=== PATIENT | female | born 1930 | race Caucasian/White ===

== ENCOUNTER 2018-10-17 13:44 | Observation (INO) ==
[2018-10-17] MEDS ORDERED: SODIUM CHLORIDE 0.9% 500 ML IV STA (14:36)
[2018-10-17] MEDS ORDERED: ONDANSETRON 4 MG/2 ML VIAL IV STA (14:36)
[2018-10-17 14:43] LABS: Basophils % 0.6 % (0.0-0.8); Eosinophils # 0.1 10*3/uL (0.0-0.87); Eosinophils % 2.6 % (0.00-10.9); Hematocrit 37.7 VOL% (35.7-47.0); Hemoglobin 12.1 GM/DL (12.0-16.0); Immature Granulocytes % 0.4 %; Immature Granulocytes Absolute 0.02 #; Lymphocytes # 1.2 10*3/uL (1.4-4.0); Lymphocytes % 25.8 % (21.3-54.2); Mean Corpuscular HGB Conc 32.1 GM/DL (32-36); Mean Corpuscular Hemoglobin 28 PG (27-34); Mean Corpuscular Volume 87.7 FL (87-102); Mean Platelet Volume 10.6 FL (9.6-12.0); Monocytes # 0.4 10*3/uL (0.11-0.8); Monocytes % 9.4 % (1.7-12.7); Neutrophils # 2.9 10*3/uL (1.4-7.4); Neutrophils % 61.2 % (38.7-73.9); Platelet Count 186 T/CUMM (130-400); Red Cell Distribution Width 14.2 % (9.3-17.3); White Blood Count 4.7 T/CUMM (4-12)
[2018-10-17 14:51] LABS: PT Patient Result 10.5 SECS
[2018-10-17 15:08] LABS: Albumin 3.6 G/DL (3.4-5.0); Bilirubin,Total 0.4 MG/DL (0.2-1.0); Calcium 9.1 MG/DL (8.5-10.1); Osmolality,Calculated 279.4 MOS/KG (273-304); Potassium 3.8 MMOL/L (3.5-5.1); Total Protein 7.9 G/DL (6.4-8.3)
[2018-10-17] MEDS ORDERED: ACETAMINOPHEN 325 MG TABLET PO PRN (16:25)
[2018-10-17] MEDS ORDERED: ONDANSETRON 4 MG/2 ML VIAL IV PRN (16:25)
[2018-10-17 17:06] LABS: Apearance,Urine CLEAR (Clear); Bilirubin,Urine Negative (Negative); Blood, Urine Negative (Negative); Glucose,Urine (UA) Negative (Negative); Ketones,Urine Negative (Negative); Mucus,Urine Occasional /LPF (Occasional); Nitrite,Urine Negative (Negative); Protein,Urine Negative; RBC,Urine 1 /HPF (0-4); Squamous Epithelial Cell,Urine Occasional /HPF (0-10); Urine Color Straw (Yellow); Urine Specific Gravity 1.006 (1.001-1.035); Urine Urobilinogen < 2.0 EU/DL (0.2-1.0); WBC,Urine 1 /HPF (0-6)
[2018-10-17] MEDS ORDERED: INFLUENZA VIRUS VACCINE 0.5 ML SYRINGE IM ONE (18:24)
[2018-10-17] MEDS: DEXTROSE 5% NACL 0.9% 1,000 ML IV SCH (18:26)
[2018-10-17] MEDS: DOCUSATE SODIUM 100 MG CAPSULE PO SCH (20:11)
[2018-10-17] MEDS ORDERED: ENOXAPARIN 30 MG/0.3 ML SYRINGE SUBCUT SCH (21:00)
[2018-10-18] MEDS: DEXTROSE 5% NACL 0.9% 1,000 ML IV SCH ×2 (04:26→15:19)
[2018-10-18] MEDS ORDERED: LEVOTHYROXINE 50 MCG TABLET PO SCH (07:00)
[2018-10-18] MEDS: DOCUSATE SODIUM 100 MG CAPSULE PO SCH (08:51)
[2018-10-18] MEDS ORDERED: PANTOPRAZOLE 40 MG TABLET PO SCH (09:00)
[2018-10-18 15:51] LABS: Basophils % 0.8 % (0.0-0.8); Eosinophils # 0.1 10*3/uL (0.0-0.87); Eosinophils % 2.8 % (0.00-10.9); Hematocrit 33.6 VOL% (35.7-47.0); Hemoglobin 10.8 GM/DL (12.0-16.0); Immature Granulocytes % 0.3 %; Immature Granulocytes Absolute 0.01 #; Lymphocytes # 1.2 10*3/uL (1.4-4.0); Lymphocytes % 31.4 % (21.3-54.2); Mean Corpuscular HGB Conc 32.1 GM/DL (32-36); Mean Corpuscular Hemoglobin 28 PG (27-34); Mean Corpuscular Volume 88.4 FL (87-102); Mean Platelet Volume 10.6 FL (9.6-12.0); Monocytes # 0.4 10*3/uL (0.11-0.8); Neutrophils # 2.2 10*3/uL (1.4-7.4); Neutrophils % 55.7 % (38.7-73.9); Platelet Count 177 T/CUMM (130-400); Red Cell Distribution Width 14.4 % (9.3-17.3); White Blood Count 3.9 T/CUMM (4-12)
[2018-10-18 16:08] LABS: Bilirubin,Total 0.4 MG/DL (0.2-1.0); Calcium 8.1 MG/DL (8.5-10.1); Potassium 3.7 MMOL/L (3.5-5.1); Total Protein 6.6 G/DL (6.4-8.3)
[2018-10-18] MEDS ORDERED: ASPIRIN EC 81 MG TABLET PO SCH (16:30)
[2018-10-18 16:37] VITALS: BP 171/74
[2018-10-19] MEDS ORDERED: LEVOTHYROXINE 75 MCG TABLET PO SCH (06:30)
== END 2018-10-18 16:43 | disposition home or self-care (01) ==
LOC: N.ED 13:44 → N.EDINP 13:44 → N.4E 17:26
PROVIDERS: ADMIT Family Medicine; ATTEND Family Medicine

== ENCOUNTER 2018-11-12 11:12 | Inpatient (IN) ==
[2018-11-12] MEDS ORDERED: SODIUM CHLORIDE 0.9% 1,000 ML IV STA ×2 (11:43→11:53)
[2018-11-12] MEDS ORDERED: ONDANSETRON 4 MG/2 ML VIAL IV STA (11:43)
[2018-11-12] MEDS ORDERED: cefTRIAXone 1,000 MG in SODIUM CHLORIDE 0.9% 100 ML IV STA (11:56)
[2018-11-12 12:28] LABS: Basophils % 0.1 % (0.0-0.8); Eosinophils % 0.2 % (0.00-10.9); Hematocrit 41.4 VOL% (35.7-47.0); Hemoglobin 13.3 GM/DL (12.0-16.0); Immature Granulocytes % 0.2 %; Immature Granulocytes Absolute 0.02 #; Lymphocytes # 0.2 10*3/uL (1.4-4.0); Lymphocytes % 1.8 % (21.3-54.2); Mean Corpuscular HGB Conc 32.1 GM/DL (32-36); Mean Corpuscular Hemoglobin 28 PG (27-34); Mean Corpuscular Volume 87.3 FL (87-102); Mean Platelet Volume 10.7 FL (9.6-12.0); Monocytes # 0.3 10*3/uL (0.11-0.8); Monocytes % 3.1 % (1.7-12.7); Neutrophils # 7.9 10*3/uL (1.4-7.4); Neutrophils % 94.6 % (38.7-73.9); Platelet Count 184 T/CUMM (130-400); Red Blood Count 4.74 MC/CUMM (3.8-5.5); Red Cell Distribution Width 14.6 % (9.3-17.3); White Blood Count 8.4 T/CUMM (4-12)
[2018-11-12 12:52] LABS: Albumin 3.9 G/DL (3.4-5.0); Bilirubin,Total 1.1 MG/DL (0.2-1.0); Calcium 9.2 MG/DL (8.5-10.1); Osmolality,Calculated 277.7 MOS/KG (273-304); Potassium 3.6 MMOL/L (3.5-5.1); Total Protein 7.7 G/DL (6.4-8.3)
[2018-11-12 13:21] LABS: Band Neutrophils 10 % (0-10); Lymphocytes 2 % (20-55); Platelet Estimate Normal; Segmented Neutrophils 84 % (50-85); Total Cells Counted 100
[2018-11-12 13:28] LABS: Apearance,Urine CLOUDY (Clear); Bilirubin,Urine Negative (Negative); Blood, Urine Small mg/dL (Negative); Glucose,Urine (UA) Negative (Negative); Ketones,Urine 5 mg/dL (Negative); Mucus,Urine Many /LPF (Occasional); Nitrite,Urine Negative (Negative); Protein,Urine 100 MG/DL; RBC,Urine 25 /HPF (0-4); Urine Color Amber (Yellow); Urine Specific Gravity 1.015 (1.001-1.035); WBC,Urine 940 /HPF (0-6)
[2018-11-12] MEDS ORDERED: ACETAMINOPHEN 325 MG TABLET PO PRN (15:30)
[2018-11-12] MEDS ORDERED: INFLUENZA VIRUS VACCINE 0.5 ML SYRINGE IM ONE (15:34)
[2018-11-12] MEDS: SODIUM CHLORIDE 0.9% 1,000 ML IV SCH (17:04)
[2018-11-12] MEDS: DOCUSATE SODIUM 100 MG CAPSULE PO SCH (20:31)
[2018-11-13] MEDS: SODIUM CHLORIDE 0.9% 1,000 ML IV SCH ×3 (00:37→20:45)
[2018-11-13] MEDS: LEVOTHYROXINE 75 MCG TABLET PO SCH (05:47)
[2018-11-13] MEDS: DOCUSATE SODIUM 100 MG CAPSULE PO SCH ×2 (08:52→20:14)
[2018-11-13] MEDS: PANTOPRAZOLE 40 MG TABLET PO SCH (08:52)
[2018-11-13] MEDS: DONEPEZIL 10 MG TABLET PO SCH (08:52)
[2018-11-13] MEDS: ASPIRIN EC 81 MG TABLET PO SCH (08:52)
[2018-11-13] MEDS: cefTRIAXone 1,000 MG in SYRINGE 1 EACH IV SCH (08:53)
[2018-11-13] MEDS: AZITHROMYCIN INJ 250 MG in SODIUM CHLORIDE 0.9% 250 ML IV SCH (08:54)
[2018-11-13] MEDS: ONDANSETRON 4 MG/2 ML VIAL IV PRN ×2 (12:20→20:14)
[2018-11-14] MEDS: SODIUM CHLORIDE 0.9% 1,000 ML IV SCH ×2 (04:29→21:19)
[2018-11-14 04:46] LABS: Basophils % 0.3 % (0.0-0.8); Eosinophils # 0.3 10*3/uL (0.0-0.87); Eosinophils % 4.5 % (0.00-10.9); Hematocrit 30.3 VOL% (35.7-47.0); Hemoglobin 9.6 GM/DL (12.0-16.0); Immature Granulocytes % 0.1 %; Immature Granulocytes Absolute 0.01 #; Lymphocytes # 0.7 10*3/uL (1.4-4.0); Lymphocytes % 9.2 % (21.3-54.2); Mean Corpuscular HGB Conc 31.7 GM/DL (32-36); Mean Corpuscular Hemoglobin 28 PG (27-34); Mean Corpuscular Volume 88.1 FL (87-102); Mean Platelet Volume 11.1 FL (9.6-12.0); Monocytes # 0.3 10*3/uL (0.11-0.8); Monocytes % 4.2 % (1.7-12.7); Neutrophils # 5.9 10*3/uL (1.4-7.4); Neutrophils % 81.7 % (38.7-73.9); Platelet Count 125 T/CUMM (130-400); Red Blood Count 3.44 MC/CUMM (3.8-5.5); Red Cell Distribution Width 15.1 % (9.3-17.3); White Blood Count 7.2 T/CUMM (4-12)
[2018-11-14 05:14] LABS: Calcium 7.5 MG/DL (8.5-10.1); Osmolality,Calculated 278.4 MOS/KG (273-304); Potassium 3.3 MMOL/L (3.5-5.1)
[2018-11-14] MEDS: LEVOTHYROXINE 75 MCG TABLET PO SCH (07:47)
[2018-11-14] MEDS: DONEPEZIL 10 MG TABLET PO SCH (08:45)
[2018-11-14] MEDS: ASPIRIN EC 81 MG TABLET PO SCH (08:46)
[2018-11-14] MEDS: PANTOPRAZOLE 40 MG TABLET PO SCH (08:46)
[2018-11-14] MEDS: cefTRIAXone 1,000 MG in SYRINGE 1 EACH IV SCH (08:46)
[2018-11-14] MEDS: DOCUSATE SODIUM 100 MG CAPSULE PO SCH ×2 (08:46→21:21)
[2018-11-14] MEDS: ONDANSETRON 4 MG/2 ML VIAL IV PRN (08:47)
[2018-11-14] MEDS: AZITHROMYCIN INJ 250 MG in SODIUM CHLORIDE 0.9% 250 ML IV SCH (08:47)
[2018-11-14] MEDS ORDERED: POTASSIUM CHLORIDE 20 MEQ TABLET PO ONE (09:30)
[2018-11-14] MEDS ORDERED: LACTULOSE 20 GM/30 ML UDCUP PO ONE ×2 (10:00→14:53)
[2018-11-14] MEDS ORDERED: POTASSIUM CHLORIDE RIDER 10 MEQ in PREMIX 1 EACH IV ONE (10:00)
[2018-11-14] MEDS ORDERED: METOCLOPRAMIDE 10 MG/2 ML VIAL IV ONE (10:00)
[2018-11-14] MEDS: LOSARTAN 50 MG TABLET PO SCH (16:41)
[2018-11-15] MEDS: LEVOTHYROXINE 75 MCG TABLET PO SCH (06:19)
[2018-11-15] MEDS: SODIUM CHLORIDE 0.9% 1,000 ML IV SCH ×3 (06:56→20:39)
[2018-11-15] MEDS: cefTRIAXone 1,000 MG in SYRINGE 1 EACH IV SCH (10:07)
[2018-11-15] MEDS: DONEPEZIL 10 MG TABLET PO SCH (10:08)
[2018-11-15] MEDS: PANTOPRAZOLE 40 MG TABLET PO SCH (10:08)
[2018-11-15] MEDS: ASPIRIN EC 81 MG TABLET PO SCH (10:08)
[2018-11-15] MEDS: AZITHROMYCIN 250 MG TABLET PO SCH (10:08)
[2018-11-15] MEDS: DOCUSATE SODIUM 100 MG CAPSULE PO SCH ×2 (10:08→21:35)
[2018-11-15] MEDS: LOSARTAN 50 MG TABLET PO SCH ×2 (10:08→22:35)
[2018-11-15] MEDS: ONDANSETRON 4 MG/2 ML VIAL IV PRN ×2 (14:58→21:34)
[2018-11-15] MEDS ORDERED: cloNIDine 0.1 MG TABLET PO ONE (22:30)
[2018-11-16 05:12] LABS: Basophils % 0.5 % (0.0-0.8); Eosinophils # 0.2 10*3/uL (0.0-0.87); Eosinophils % 4.7 % (0.00-10.9); Hemoglobin 11.4 GM/DL (12.0-16.0); Immature Granulocytes % 0.2 %; Immature Granulocytes Absolute 0.01 #; Lymphocytes # 1.2 10*3/uL (1.4-4.0); Lymphocytes % 29.1 % (21.3-54.2); Mean Corpuscular HGB Conc 32.6 GM/DL (32-36); Mean Corpuscular Hemoglobin 28 PG (27-34); Mean Corpuscular Volume 84.7 FL (87-102); Mean Platelet Volume 11.2 FL (9.6-12.0); Monocytes # 0.3 10*3/uL (0.11-0.8); Monocytes % 6.4 % (1.7-12.7); Neutrophils # 2.4 10*3/uL (1.4-7.4); Neutrophils % 59.1 % (38.7-73.9); Platelet Count 175 T/CUMM (130-400); Red Blood Count 4.13 MC/CUMM (3.8-5.5); Red Cell Distribution Width 14.6 % (9.3-17.3); White Blood Count 4.1 T/CUMM (4-12)
[2018-11-16 05:45] LABS: Osmolality,Calculated 273.5 MOS/KG (273-304)
[2018-11-16] MEDS: LEVOTHYROXINE 75 MCG TABLET PO SCH (05:54)
[2018-11-16] MEDS: cefTRIAXone 1,000 MG in SYRINGE 1 EACH IV SCH (10:03)
[2018-11-16] MEDS: ASPIRIN EC 81 MG TABLET PO SCH (10:04)
[2018-11-16] MEDS: LOSARTAN 50 MG TABLET PO SCH ×2 (10:04→22:36)
[2018-11-16] MEDS: AZITHROMYCIN 250 MG TABLET PO SCH (10:05)
[2018-11-16] MEDS: DONEPEZIL 10 MG TABLET PO SCH ×2 (10:05→10:07)
[2018-11-16] MEDS: PANTOPRAZOLE 40 MG TABLET PO SCH (10:05)
[2018-11-16] MEDS: DOCUSATE SODIUM 100 MG CAPSULE PO SCH ×2 (10:05→22:36)
[2018-11-16] MEDS: MECLIZINE 25 MG TABLET PO SCH ×2 (10:05→22:36)
[2018-11-16] MEDS: hydrOXYzine HCL 25 MG TABLET PO SCH ×2 (11:33→22:36)
[2018-11-16] MEDS: SERTRALINE 50 MG TABLET PO SCH (11:34)
[2018-11-16] MEDS: SODIUM CHLOR 0.9% KCL 20 MEQ 20 MEQ/1,000 ML BAG IV SCH ×2 (11:34→23:41)
[2018-11-16] MEDS: SODIUM CHLORIDE 0.9% 1,000 ML IV SCH (23:13)
[2018-11-17] MEDS: LEVOTHYROXINE 75 MCG TABLET PO SCH (06:05)
[2018-11-17] MEDS ORDERED: POTASSIUM CHLORIDE 20 MEQ/15 ML UDCUP PO SCH (07:30)
[2018-11-17] MEDS ORDERED: POTASSIUM CHLORIDE 20 MEQ/15 ML UDCUP PO ONE (08:07)
[2018-11-17] MEDS: MECLIZINE 25 MG TABLET PO SCH (08:29)
[2018-11-17] MEDS: hydrOXYzine HCL 25 MG TABLET PO SCH (08:29)
[2018-11-17] MEDS: cefTRIAXone 1,000 MG in SYRINGE 1 EACH IV SCH (08:29)
[2018-11-17] MEDS: LOSARTAN 50 MG TABLET PO SCH (08:29)
[2018-11-17] MEDS: ASPIRIN EC 81 MG TABLET PO SCH (08:29)
[2018-11-17] MEDS: AZITHROMYCIN 250 MG TABLET PO SCH (08:29)
[2018-11-17] MEDS: DOCUSATE SODIUM 100 MG CAPSULE PO SCH (08:29)
[2018-11-17] MEDS: PANTOPRAZOLE 40 MG TABLET PO SCH (08:29)
[2018-11-17] MEDS: SERTRALINE 50 MG TABLET PO SCH (08:29)
[2018-11-17] MEDS: SODIUM CHLOR 0.9% KCL 20 MEQ 20 MEQ/1,000 ML BAG IV SCH (13:17)
[2018-11-17 16:01] VITALS: BP 178/77
[2018-11-18] MEDS ORDERED: POTASSIUM CHLORIDE 20 MEQ TABLET PO SCH (09:00)
== END 2018-11-17 16:37 | disposition home or self-care (01) | DRG 641 ==
LOC: N.ED 11:12 → N.EDINP 13:35 → N.2E 14:27
PROVIDERS: ADMIT Family Medicine; ATTEND Family Medicine

== ENCOUNTER 2018-11-18 17:51 | Inpatient (IN) ==
[2018-11-18] MEDS ORDERED: PNEUMOCOCCAL VACCINE (13 VALENT) 0.5 ML SYRINGE IM ONE (19:23)
[2018-11-18] MEDS ORDERED: ONDANSETRON 4 MG/2 ML VIAL IV PRN (19:37)
[2018-11-18] MEDS ORDERED: ACETAMINOPHEN 325 MG TABLET PO PRN (19:37)
[2018-11-18] MEDS: SODIUM CHLORIDE 0.9% 1,000 ML IV SCH (19:54)
[2018-11-18] MEDS: DOCUSATE SODIUM 100 MG CAPSULE PO SCH (20:39)
[2018-11-18] MEDS: PIPERACILLIN/TAZOBACTAM 3,375 MG in SODIUM CHLORIDE 0.9% 100 ML IV SCH (20:39)
[2018-11-18 20:48] LABS: Calcium 8.4 MG/DL (8.5-10.1); Osmolality,Calculated 282.3 MOS/KG (273-304); Potassium 2.7 MMOL/L (3.5-5.1)
[2018-11-18] MEDS: ENOXAPARIN 40 MG/0.4 ML SYRINGE SUBCUT SCH (21:26)
[2018-11-18] MEDS: POTASSIUM CHLORIDE 20 MEQ/15 ML UDCUP PER TUBE PRN ×2 (22:05→23:54)
[2018-11-19] MEDS: PIPERACILLIN/TAZOBACTAM 3,375 MG in SODIUM CHLORIDE 0.9% 100 ML IV SCH ×3 (03:13→20:26)
[2018-11-19 05:20] LABS: Basophils % 0.2 % (0.0-0.8); Eosinophils # 0.1 10*3/uL (0.0-0.87); Eosinophils % 0.6 % (0.00-10.9); Hematocrit 31.4 VOL% (35.7-47.0); Hemoglobin 10.1 GM/DL (12.0-16.0); Immature Granulocytes % 0.7 %; Immature Granulocytes Absolute 0.09 #; Lymphocytes # 0.7 10*3/uL (1.4-4.0); Lymphocytes % 5.5 % (21.3-54.2); Mean Corpuscular HGB Conc 32.2 GM/DL (32-36); Mean Corpuscular Hemoglobin 27 PG (27-34); Mean Corpuscular Volume 85.3 FL (87-102); Mean Platelet Volume 10.6 FL (9.6-12.0); Monocytes # 0.7 10*3/uL (0.11-0.8); Neutrophils # 10.7 10*3/uL (1.4-7.4); Platelet Count 165 T/CUMM (130-400); Red Blood Count 3.68 MC/CUMM (3.8-5.5); Red Cell Distribution Width 14.7 % (9.3-17.3); White Blood Count 12.4 T/CUMM (4-12)
[2018-11-19 05:52] LABS: Calcium 8.2 MG/DL (8.5-10.1); Osmolality,Calculated 284.1 MOS/KG (273-304); Potassium 3.4 MMOL/L (3.5-5.1)
[2018-11-19] MEDS: POTASSIUM CHLORIDE RIDER 10 MEQ in PREMIX 1 EACH IV PRN ×3 (06:11→08:56)
[2018-11-19] MEDS ORDERED: MAGNESIUM SULF RIDER 2 GM in PREMIX 1 EACH IV PRN (06:39)
[2018-11-19] MEDS ORDERED: MAGNESIUM SULF RIDER 4 GM in PREMIX 1 EACH IV PRN (06:39)
[2018-11-19] MEDS: SODIUM CHLORIDE 0.9% 1,000 ML IV SCH ×2 (08:56→20:26)
[2018-11-19] MEDS: ASPIRIN EC 81 MG TABLET PO SCH (09:12)
[2018-11-19] MEDS: DOCUSATE SODIUM 100 MG CAPSULE PO SCH ×2 (09:12→20:25)
[2018-11-19] MEDS: PANTOPRAZOLE 40 MG VIAL IV SCH (09:36)
[2018-11-19] MEDS: ENOXAPARIN 40 MG/0.4 ML SYRINGE SUBCUT SCH (20:25)
[2018-11-20] MEDS: SODIUM CHLORIDE 0.9% 1,000 ML IV SCH ×2 (02:36→15:23)
[2018-11-20] MEDS: PIPERACILLIN/TAZOBACTAM 3,375 MG in SODIUM CHLORIDE 0.9% 100 ML IV SCH ×3 (03:42→20:08)
[2018-11-20 05:24] LABS: Basophils % 0.2 % (0.0-0.8); Eosinophils # 0.3 10*3/uL (0.0-0.87); Eosinophils % 4.8 % (0.00-10.9); Hematocrit 30.3 VOL% (35.7-47.0); Hemoglobin 9.8 GM/DL (12.0-16.0); Immature Granulocytes % 0.3 %; Immature Granulocytes Absolute 0.02 #; Lymphocytes # 0.9 10*3/uL (1.4-4.0); Lymphocytes % 13.6 % (21.3-54.2); Mean Corpuscular HGB Conc 32.3 GM/DL (32-36); Mean Corpuscular Hemoglobin 28 PG (27-34); Mean Corpuscular Volume 86.1 FL (87-102); Mean Platelet Volume 11.5 FL (9.6-12.0); Monocytes # 0.4 10*3/uL (0.11-0.8); Monocytes % 5.7 % (1.7-12.7); Neutrophils # 4.7 10*3/uL (1.4-7.4); Neutrophils % 75.4 % (38.7-73.9); Platelet Count 155 T/CUMM (130-400); Red Blood Count 3.52 MC/CUMM (3.8-5.5); Red Cell Distribution Width 14.9 % (9.3-17.3); White Blood Count 6.3 T/CUMM (4-12)
[2018-11-20 05:42] LABS: Calcium 8.2 MG/DL (8.5-10.1); Osmolality,Calculated 280.3 MOS/KG (273-304); Potassium 3.1 MMOL/L (3.5-5.1)
[2018-11-20] MEDS: LEVOTHYROXINE 100 MCG TABLET PO SCH (06:22)
[2018-11-20] MEDS: POTASSIUM CHLORIDE RIDER 10 MEQ in PREMIX 1 EACH IV PRN ×4 (06:23→10:35)
[2018-11-20] MEDS ORDERED: LEVOTHYROXINE 75 MCG TABLET PO SCH (06:30)
[2018-11-20] MEDS: DOCUSATE SODIUM 100 MG CAPSULE PO SCH ×2 (08:58→20:09)
[2018-11-20] MEDS: LOSARTAN 50 MG TABLET PO SCH (08:58)
[2018-11-20] MEDS: ASPIRIN EC 81 MG TABLET PO SCH (08:58)
[2018-11-20] MEDS: PANTOPRAZOLE 40 MG VIAL IV SCH (08:59)
[2018-11-20 09:34] LABS: Apearance,Urine CLEAR (Clear); Bilirubin,Urine Negative (Negative); Blood, Urine Negative (Negative); Glucose,Urine (UA) Negative (Negative); Ketones,Urine Negative (Negative); Mucus,Urine Occasional /LPF (Occasional); Nitrite,Urine Negative (Negative); Protein,Urine Negative; RBC,Urine <1 /HPF (0-4); Squamous Epithelial Cell,Urine Occasional /HPF (0-10); Urine Color Straw (Yellow); Urine Specific Gravity 1.009 (1.001-1.035); Urine Urobilinogen < 2.0 EU/DL (0.2-1.0); WBC,Urine <1 /HPF (0-6)
[2018-11-20] MEDS ORDERED: cloNIDine 0.1 MG TABLET PO PRN (19:47)
[2018-11-20] MEDS: ENOXAPARIN 40 MG/0.4 ML SYRINGE SUBCUT SCH (20:09)
[2018-11-21] MEDS: POTASSIUM CHLORIDE RIDER 10 MEQ in PREMIX 1 EACH IV PRN ×6 (00:39→13:34)
[2018-11-21] MEDS: PIPERACILLIN/TAZOBACTAM 3,375 MG in SODIUM CHLORIDE 0.9% 100 ML IV SCH ×3 (05:00→20:18)
[2018-11-21 05:01] LABS: Basophils % 0.7 % (0.0-0.8); Eosinophils # 0.3 10*3/uL (0.0-0.87); Eosinophils % 5.6 % (0.00-10.9); Hematocrit 30.1 VOL% (35.7-47.0); Hemoglobin 9.8 GM/DL (12.0-16.0); Immature Granulocytes % 0.4 %; Immature Granulocytes Absolute 0.02 #; Lymphocytes # 1.2 10*3/uL (1.4-4.0); Lymphocytes % 27.6 % (21.3-54.2); Mean Corpuscular HGB Conc 32.6 GM/DL (32-36); Mean Corpuscular Hemoglobin 28 PG (27-34); Mean Corpuscular Volume 85.5 FL (87-102); Mean Platelet Volume 10.9 FL (9.6-12.0); Monocytes # 0.2 10*3/uL (0.11-0.8); Monocytes % 5.2 % (1.7-12.7); Neutrophils # 2.7 10*3/uL (1.4-7.4); Neutrophils % 60.5 % (38.7-73.9); Platelet Count 179 T/CUMM (130-400); Red Blood Count 3.52 MC/CUMM (3.8-5.5); Red Cell Distribution Width 14.9 % (9.3-17.3); White Blood Count 4.5 T/CUMM (4-12)
[2018-11-21 05:22] LABS: Calcium 8.1 MG/DL (8.5-10.1); Osmolality,Calculated 279.1 MOS/KG (273-304); Potassium 3.2 MMOL/L (3.5-5.1)
[2018-11-21] MEDS: LEVOTHYROXINE 100 MCG TABLET PO SCH (07:21)
[2018-11-21] MEDS: SODIUM CHLORIDE 0.9% 1,000 ML IV SCH ×3 (08:16→15:44)
[2018-11-21] MEDS: LOSARTAN 50 MG TABLET PO SCH (10:14)
[2018-11-21] MEDS: SERTRALINE 25 MG TABLET PO SCH (10:14)
[2018-11-21] MEDS: ASPIRIN EC 81 MG TABLET PO SCH (10:14)
[2018-11-21] MEDS: DOCUSATE SODIUM 100 MG CAPSULE PO SCH ×2 (10:14→20:18)
[2018-11-21] MEDS: PANTOPRAZOLE 40 MG VIAL IV SCH (10:15)
[2018-11-21] MEDS: ENOXAPARIN 40 MG/0.4 ML SYRINGE SUBCUT SCH (20:18)
[2018-11-22] MEDS: PIPERACILLIN/TAZOBACTAM 3,375 MG in SODIUM CHLORIDE 0.9% 100 ML IV SCH ×3 (04:33→21:50)
[2018-11-22] MEDS: LEVOTHYROXINE 100 MCG TABLET PO SCH (07:18)
[2018-11-22] MEDS: SODIUM CHLORIDE 0.9% 1,000 ML IV SCH (07:22)
[2018-11-22] MEDS ORDERED: PNEUMOCOCCAL VACCINE (13 VALENT) 0.5 ML SYRINGE IM ONE (09:00)
[2018-11-22] MEDS: ASPIRIN EC 81 MG TABLET PO SCH (10:08)
[2018-11-22] MEDS: DOCUSATE SODIUM 100 MG CAPSULE PO SCH ×2 (10:08→21:49)
[2018-11-22] MEDS: LOSARTAN 50 MG TABLET PO SCH (10:08)
[2018-11-22] MEDS: PANTOPRAZOLE 40 MG VIAL IV SCH (10:08)
[2018-11-22] MEDS: SERTRALINE 25 MG TABLET PO SCH (10:08)
[2018-11-22] MEDS ORDERED: hydrALAZINE 20 MG/1 ML VIAL IV PRN (12:21)
[2018-11-22] MEDS: ENOXAPARIN 40 MG/0.4 ML SYRINGE SUBCUT SCH (21:49)
[2018-11-23] MEDS: PIPERACILLIN/TAZOBACTAM 3,375 MG in SODIUM CHLORIDE 0.9% 100 ML IV SCH (03:32)
[2018-11-23] MEDS: LEVOTHYROXINE 100 MCG TABLET PO SCH (05:53)
[2018-11-23] MEDS: LOSARTAN 50 MG TABLET PO SCH (11:25)
[2018-11-23] MEDS: DOCUSATE SODIUM 100 MG CAPSULE PO SCH (11:26)
[2018-11-23] MEDS: PANTOPRAZOLE 40 MG VIAL IV SCH (11:26)
[2018-11-23] MEDS: SERTRALINE 25 MG TABLET PO SCH (11:26)
[2018-11-23] MEDS: ASPIRIN EC 81 MG TABLET PO SCH (11:26)
[2018-11-23 13:22] VITALS: BP 167/70
== END 2018-11-23 14:40 | disposition home health service (06) | DRG 177 ==
LOC: N.ICU 19:02 → N.3E 11-20 21:13
PROVIDERS: ADMIT Family Medicine; ATTEND Family Medicine